=== PATIENT | male | born 1990 | race Caucasian/White ===

== ENCOUNTER 2017-08-02 13:58 | Emergency (ER) | payer MEDICAID ==
[2017-08-02 15:00] LABS: ABSOLUTE BASOPHILS # (AUTO) 0.1 10^3/uL (0.0-0.2); ABSOLUTE EOSINOPHILS # (AUTO) 0.2 10^3/uL (0.0-0.6); ABSOLUTE LYMPHOCYTES (AUTO) 1.7 10^3/uL (0.5-4.7); ABSOLUTE MONOCYTES (AUTO) 1.2 10^3/uL (0.1-1.4); ABSOLUTE NEUT (AUTO) 8.9 10^3/uL (1.7-8.2); BASOPHILS % (AUTO) 0.6 % (0-2); EOSINOPHILS % (AUTO) 1.3 % (0-6); HEMATOCRIT 47.4 % (37.9-51.0); HEMOGLOBIN 16.5 g/dL (13.5-17.0); LYMPHOCYTES % (AUTO) 14.1 % (13-45); MEAN CORPUSCULAR HEMOGLOBIN 30.2 pg (27.0-33.4); MEAN CORPUSCULAR HGB CONC 34.7 g/dL (32.0-36.0); MEAN CORPUSCULAR VOLUME 87 fl (80-97); PLATELET COUNT 393 10^3/uL (150-450); RED BLOOD COUNT 5.45 10^6/uL (4.35-5.55); RED CELL DISTRIBUTION WIDTH 13.2 % (11.5-14.0); TOTAL CELLS COUNTED % (AUTO) 100 %
[2017-08-02] MEDS ORDERED: PANTOPRAZOLE SODIUM 40 MG VIAL IV ONE (15:01)
[2017-08-02] MEDS ORDERED: METOCLOPRAMIDE HCL ORAL SOLN 10 MG/10 ML UDCUP PO ONE (15:01)
[2017-08-02] MEDS ORDERED: MAG HYDROX/AL HYDROX/SIMETH SUSP 30 ML UDCUP PO ONE (15:01)
[2017-08-02] MEDS ORDERED: LIDOCAINE 2% VISCOUS SOLN 20 ML UDCUP PO ONE (15:01)
--- NOTE | 2017-08-02 15:01 | ER Document Report ---
ED General - General Chief Complaint: Chest Pain Stated Complaint: CHEST PAINS Time Seen by Provider: 08/02/17 14:33 Mode of Arrival: Ambulatory Information source: Patient Notes: This is a 27-year-old man with a history of schizophrenia who presents to the emergency room with a 5 day history of chest burning worsened with food. He does note dark stools 1 week ago when this started. He denies any dark stools now. He denies any bright red blood per rectum. He states that the discomfort is not as bad with water. He denies any history of food getting stuck. He is a 2 pack per day smoker. He denies alcohol and recreational drugs. His only medicines is in an InVega injection every 3 months by his psychiatrist (he received an injection just prior to arrival to the ER today). TRAVEL OUTSIDE OF THE [place] IN LAST 30 DAYS: No - HPI Onset: Other - Last month Onset/Duration: Gradual Quality of pain: Burning Severity: Moderate Pain Level: 2 Associated symptoms: denies: Chest pain, Fever, Shortness of breath Exacerbated by: Food Relieved by: Denies Similar symptoms previously: No Recently seen / treated by doctor: No - Related Data Allergies/Adverse Reactions: No Known Allergies Allergy (Verified 08/02/17 13:59) Past Medical History - General Information source: Patient - Social History Smoking Status: Current Every Day Smoker Cigarette use (# per day): Yes - 2 packs per day Frequency of alcohol use: None Drug Abuse: None Lives with: Family Family History: Reviewed & Not Pertinent - Past Medical History Cardiac Medical History: Reports: Hx Hypertension Psychiatric Medical History: Reports: Hx Depression, Hx Schizophrenia Surgical Hx: Negative - Immunizations Hx Diphtheria, Pertussis, Tetanus Vaccination: Yes Hx Pneumococcal Vaccination: 02/27/00 Review of Systems - Review of Systems Constitutional: denies: Chills, Fever EENT: No symptoms reported Cardiovascular: No symptoms reported Respiratory: No symptoms reported Gastrointestinal: See HPI Genitourinary: No symptoms reported Male Genitourinary: No symptoms reported Musculoskeletal: No symptoms reported Skin: No symptoms reported Hematologic/Lymphatic: No symptoms reported Neurological/Psychological: No symptoms reported Physical Exam - Vital signs Vitals: Temp Pulse Resp BP Pulse Ox 98.6 F 136 H 18 151/106 H 96 08/02/17 14:10 08/02/17 14:10 08/02/17 14:10 08/02/17 14:10 08/02/17 14:10 Notes: Physical exam: GENERAL: 27-year-old man, alert and oriented 3, no acute distress, blood pressure 140/101, he is tachycardic with a pulse of 133. HEAD: Atraumatic, normocephalic. EYES: Pupils equal round and reactive to light, extraocular movements intact, sclera anicteric, conjunctiva are normal. ENT: TMs normal, nares patent, oropharynx clear without exudates. Moist mucous membranes. NECK: Normal range of motion, supple without obvious mass or JVD. LUNGS: Breath sounds clear to auscultation bilaterally and equal. No wheezes rales or rhonchi. HEART: Regular rate and rhythm without murmurs, rubs or gallops. ABDOMEN: Soft, normoactive bowel sounds. No tenderness to palpation. No guarding, no rebound. No masses appreciated. Rectal: Brown stool, sent for study EXTREMITIES: Normal range of motion, no pitting or edema. No clubbing or cyanosis. NEUROLOGICAL: Cranial nerves II through XII grossly intact. Normal speech, moving all extremities. PSYCH: Normal mood, normal affect. SKIN: Warm, Dry, normal turgor, no rashes or lesions noted. Course - Re-evaluation Re-evalutation: 08/02/17 19:22 Patient was tachycardic on arrival. He was observed and given fluids and his heart rate came down nicely. His abdomen has remained benign. His stool was brown but did test positive for blood and he was started on Protonix for an ulcer. His heart rate has come down nicely. He is currently hemodynamically stable. I will place him on outpatient medicine with follow-up in the next few days with a GI doctor. 08/02/17 23:54 Note: On review of the chart I realized I had not given the patient the number of Dr. Obrien and his office. I did call the patient's grandmother at home and she took Dr. Obrien name and phone number and address. - Vital Signs Vital signs: Temp Pulse Resp BP Pulse Ox 98.0 F 106 H 20 142/85 H 96 08/02/17 19:38 08/02/17 19:38 08/02/17 19:38 08/02/17 19:38 08/02/17 19:38 - Laboratory Result Diagrams: 08/02/17 14:35 08/02/17 14:35 Laboratory results interpreted by me: 08/02/17 08/02/17 14:35 14:35 WBC 12.0 H Absolute Neutrophils 8.9 H Chloride 97 L Glucose 122 H Calcium 11.5 H Creatine Kinase 216 H - Diagnostic Test Radiology reviewed: Image reviewed, Reports reviewed - Chest x-ray shows no infiltrates - EKG Interpretation by Me Rate: Tachycardia - EKG shows tachycardia with a ventricular rate of 129, no acute ST-T wave changes Discharge - Discharge Clinical Impression: Peptic ulcer disease Condition: Stable Disposition: HOME, SELF-CARE Additional Instructions: Note: Your symptoms are consistent with a gastric or duodenal ulcer. While your stool was brown, there was microscopic blood in it. Your blood counts were otherwise fine. It is important that you follow-up with a GI doctor: Call Dr. Obrien tomorrow. Tell the crane oiler that you were seen in the emergency room and the ER doctor wanted you seen by Dr. Obrien soon because he thinks she have an ulcer and that there was blood in your stool. Take the medicine as prescribed Return to the ER for any concerns that the pain is getting worse, or if you start vomiting blood, or if you have black stools, or if you feel faint and dizzy. If you are unable to get into see the GI doctor in the next week, and you are still having discomfort, want you to come into the ER for repeat evaluation. Recommendations: It is also recommended to followup with a primary care doctor within the next 2 days. If you do not have a primary care doctor or you are unable to get an apointment during that time, I left the number for some internal medicine physicians that are affiliated with this [facility]. Dr. Megan Garcia [address], [place] [address] [phone] Dr Haywood Address: [address] [place] [address] [place] [address] Dr Beltran Address: [address] [facility] , [place] [address] Prescriptions: Pantoprazole Sodium [Protonix] 20 mg PO DAILY #30 tablet.dr Referrals: ZAY GIFFORD, LOGISTICS PLANNER-C [Primary Care Provider] - Follow up as needed ENA OBRIEN MD [ACTIVE STAFF] - Follow up as needed
[2017-08-02 15:03] LABS: INTERNATIONAL RATION (INR) 0.97; PROTHROMBIN TIME 13.4 SEC (11.4-15.4)
--- NOTE | 2017-08-02 15:12 | RADIOLOGY REPORT (SQ) ---
EXAM DESCRIPTION: CHEST SINGLE VIEW COMPLETED DATE/TIME: 08/02/2017 2:59 pm REASON FOR STUDY: chest pain COMPARISON: 10/23/2006. EXAM PARAMETERS: NUMBER OF VIEWS: One view. TECHNIQUE: Single frontal radiographic view of the chest acquired. RADIATION DOSE: NA LIMITATIONS: None. FINDINGS: LUNGS AND PLEURA: No opacities, masses or pneumothorax. No pleural effusion. MEDIASTINUM AND HILAR STRUCTURES: No masses. Contour normal. HEART AND VASCULAR STRUCTURES: Heart normal in size. Normal vasculature. BONES: No acute findings. HARDWARE: None in the chest. OTHER: No other significant finding. IMPRESSION: NO ACUTE RADIOGRAPHIC FINDING IN THE CHEST. TECHNICAL DOCUMENTATION: JOB ID: [id number] [employer]- All Rights Reserved Reading location - IP/workstation name: [email or web address]
[2017-08-02 15:20] LABS: ALANINE AMINOTRANSFERASE 52 U/L (21-72); ALBUMIN 4.7 g/dL (3.5-5.0); ALKALINE PHOSPHATASE 106 U/L (38-126); ANION GAP 17 (5-19); ASPARTATE AMINO TRANSFERASE 28 U/L (17-59); BILIRUBIN,DIRECT 0.3 mg/dL (0.0-0.4); BILIRUBIN,TOTAL 0.5 mg/dL (0.2-1.3); BLOOD UREA NITROGEN 14 mg/dL (7-20); CALCIUM 11.5 mg/dL (8.4-10.2); CARBON DIOXIDE 28 mmol/L (22-30); CHLORIDE 97 mmol/L (98-107); CREATINE KINASE 216 U/L (55-170); GLUCOSE 122 mg/dL (75-110); POTASSIUM 3.7 mmol/L (3.6-5.0); SODIUM 141.8 mmol/L (137-145); TOTAL PROTEIN 7.8 g/dL (6.3-8.2)
[2017-08-02 15:32] LABS: CREATINE KINASE MB 0.44 ng/mL (<4.55)
[2017-08-02 15:33] LABS: TROPONIN I < 0.012 ng/mL
[2017-08-02 15:39] LABS: FREE T3 4.76 pg/mL (2.77-5.27); FREE T4 (FREE THYROXINE) 1.67 ng/dL (0.78-2.19)
[2017-08-02 15:52] LABS: THYROID STIMULATING HORMONE 3.35 uIU/mL (0.47-4.68)
[2017-08-02] MEDS ORDERED: NORMAL SALINE 1000 ML 1,000 ML IV ONE ×2 (16:25→16:54)
[2017-08-02 19:39] VITALS: BP 142/85
--- NOTE | 2017-08-02 23:00 | EKG REPORT ---
SEVERITY:- ABNORMAL ECG - SINUS TACHYCARDIA INCOMPLETE RIGHT BUNDLE BRANCH BLOCK : Confirmed by: Margi Carlisle MD 02-Aug-2017 22:59:35
== END 2017-08-02 19:36 | disposition home or self-care (01) ==
LOC: ER 13:58
DX: K27.9 Peptic ulcer, site unspecified, unspecified as acute or chronic, without hemorrhage or perforation (principal); R07.9 Chest pain, unspecified; F17.210 Nicotine dependence, cigarettes, uncomplicated; I10 Essential (primary) hypertension
CPT/HCPCS: 93005; 99285; 96361; 96374; 36415; 84439; 82553; 82550; 83735; 84443; 85025; 85610; 82272; 80053; 84484; 84481; 71045; 93010; J3490 ×3; J7030; S0164